=== PATIENT | female | born 1985 | race Caucasian/White ===

== ENCOUNTER 2020-09-11 11:47 | Emergency (ER) | payer MEDICAID ==
[~2020-09-11] VITALS: Ht 157.5 cm; Wt 52.3 kg
[2020-09-11 11:55] VITALS: BP 141/90
== END 2020-09-11 16:03 | disposition left against medical advice (07) ==
LOC: ER 11:47
DX: R51.9 Headache, unspecified (principal); R42 Dizziness and giddiness; Z53.21 Procedure and treatment not carried out due to patient leaving prior to being seen by health care provider
CPT/HCPCS: 71046

== ENCOUNTER 2021-02-03 21:02 | Emergency (ER) | payer MEDICAID ==
[~2021-02-03] VITALS: Ht 160 cm; Wt 56.8 kg
[2021-02-03 21:13] VITALS: BP 115/80
== END 2021-02-03 23:30 ==
LOC: ER 21:02
DX: Z04.1 Encounter for examination and observation following transport accident (principal); Z72.89 Other problems related to lifestyle; V99.XXXA Unspecified transport accident, initial encounter; Y93.89 Activity, other specified; Y92.89 Other specified places as the place of occurrence of the external cause; Y99.8 Other external cause status
CPT/HCPCS: 70450; 72125; 99285

== ENCOUNTER 2023-04-19 10:35 | Emergency (ER) | payer MEDICAID ==
[~2023-04-19] VITALS: Ht 157.5 cm; Wt 61.9 kg
[2023-04-19 10:39] VITALS: BP 138/97; PULSE 113; RESP 18; O2SAT 100
[2023-04-19 11:40] LABS: BASOPHILS % (AUTO) 0.4 % (0-1); EOSINOPHILS % (AUTO) 0.2 % (0-6); HEMOGLOBIN 13.4 g/dl (12.0-16.0); LYMPHOCYTES # (AUTO) 2.7 X10'3 (1.1-4.8); LYMPHOCYTES % (AUTO) 31.1 % (21-51); MEAN CORPUSCULAR HGB CONC 33.5 g/dL (33.0-36.5); MEAN CORPUSCULAR VOLUME 92.7 FL (78-98); MEAN PLATELET VOLUME 6.8 FL (7.4-10.4); MONOCYTES # (AUTO) 0.6 X10'3 (0-0.9); MONOCYTES % (AUTO) 7.1 % (2-12); NEUTROPHILS # (AUTO) 5.2 X10'3 (1.8-7.7); NEUTROPHILS % (AUTO) 61.2 % (42-75); PLATELET COUNT 245 X10'3 (140-440); RED BLOOD COUNT 4.32 X10'6 (4.20-5.60); RED CELL DISTRIBUTION WIDTH 13.9 % (11.5-14.5); WHITE BLOOD COUNT 8.5 X10'3 (4.5-11.0)
[2023-04-19] MEDS ORDERED: LORazepam 2 mg/ml vial IV ONE (11:50)
[2023-04-19] MEDS ORDERED: normal saline 1000ML IV soln IVB ONE (11:50)
[2023-04-19 12:04] LABS: ALANINE AMINOTRANSFERASE 31 U/L (12-78); ALBUMIN 3.8 G/DL (3.4-5.0); ALBUMIN/GLOBULIN RATIO 0.9 (1.1-1.5); ALKALINE PHOSPHATASE 73 IU/L (46-116); ANION GAP 8 (8-16); ASPARTATE AMINO TRANSFERASE 30 U/L (10-37); BILIRUBIN,TOTAL 0.3 MG/DL (0.1-1.0); BLOOD UREA NITROGEN 9 MG/DL (7-18); BUN/CREATININE RATIO 10.8 (10.0-20.0); CALCIUM 8.5 MG/DL (8.5-10.1); CHLORIDE 99 MMOL/L (99-107); CREATININE 0.83 MG/DL (0.40-0.90); GLUCOSE 125 MG/DL (70-104); POTASSIUM 3.9 MMOL/L (3.5-5.1); SODIUM 133 MMOL/L (135-145); TOTAL CARBON DIOXIDE 26.4 MMOL/L (24-32); TOTAL PROTEIN 7.9 G/DL (6.4-8.2); eCRCL 72 ML/MIN; eGFR 77 ML/MIN
[2023-04-19 12:08] LABS: ETHANOL 17 MG/DL (<10)
[2023-04-19] MEDS ORDERED: LORA-269 PO (13:38)
[2023-04-19] MEDS ORDERED: ONDA4TAB12 PO (13:38)
[2023-04-19 13:43] LABS: BILIRUBIN,URINE NEGATIVE (Neg); CLARITY,URINE SLIGHTLY CLOUDY (Clear); COLOR,URINE YELLOW (Yellow); GLUCOSE, URINE NEGATIVE (Neg); KETONES,URINE TRACE mg/dl (Neg); LEUKOCYTE ESTERASE ,URINE NEGATIVE (Neg); NITRITES, URINE NEGATIVE (Neg); OCCULT BLOOD,URINE TRACE-INTACT (Neg); PH,URINE 7.5 (4.8-8.0); PROTEIN,URINE NEGATIVE (Neg); UROBILINOGEN,URINE 0.2 E.U/dL (0.2-1.0)
[2023-04-19 13:47] LABS: URINE AMPHETAMINE SCREEN NEGATIVE (Neg); URINE BARBITUATE SCREEN NEGATIVE (Neg); URINE BENZODIAZEPINES SCREEN NEGATIVE (Neg); URINE CANNABINOID SCREEN POSITIVE (Neg); URINE COCAINE SCREEN NEGATIVE (Neg); URINE METHADONE SCREEN NEGATIVE (Neg); URINE OPIATE SCREEN NEGATIVE (Neg); URINE PHENCYCLIDINE SCREEN NEGATIVE (Neg)
[2023-04-19 13:54] LABS: UA COLLECTION TYPE CLN CATCH MIDSTREAM
[2023-04-19 13:56] LABS: SQUAMOUS EPITHELIAL CELL,UR MANY /LPF (FEW)
[2023-04-19 13:57] LABS: BACTERIA,URINE FEW /HPF (Neg); RBC,URINE 0-2 /HPF (0-2); TRANSITIONAL EPI CELLS,URINE FEW /HPF; WBC,URINE 0-4 /HPF (0-4)
[2023-04-19 14:31] VITALS: TEMP 99.2
== END 2023-04-19 14:36 | disposition home or self-care (01) ==
LOC: ER 10:35
DX: F10.129 Alcohol abuse with intoxication, unspecified (principal); Y90.9 Presence of alcohol in blood, level not specified
CPT/HCPCS: 36415; 71045; 80053; 80305; 80320; 81001; 82140; 82948; 84484; 85025; 93005; 96374; 99285; J2060; J7030

== ENCOUNTER 2024-02-26 08:33 | Emergency (ER) | payer MEDICAID ==
[~2024-02-26] VITALS: Ht 157.5 cm; Wt 66.5 kg
[~2024-02-26 08:33] MED LIST: LORA-269 PO; ONDA-243 PO
[2024-02-26 09:09] VITALS: PULSE 96; RESP 16; TEMP 98.6; O2SAT 99
== END 2024-02-26 11:35 | disposition left against medical advice (07) ==
LOC: ER 08:34
DX: Z00.8 Encounter for other general examination (principal); Z53.21 Procedure and treatment not carried out due to patient leaving prior to being seen by health care provider